=== PATIENT | female | born 1965 | race Caucasian/White ===

== ENCOUNTER → 2016-07-20 | Outpatient (CLI) | payer BC ==
[~2016-07-20] MED LIST: NORVASC5 MG PO; PERCOCET 7.5-31 EACH PO; PRAVASTATIN SOD40 MG PO
[2016-07-20 09:57] LABS: HEMOGLOBIN 13.2 gm/dl (12.3-15.3); RED BLOOD COUNT 4.56 M/UL (4.00-5.10); WHITE BLOOD COUNT 5.4 K/UL (4.5-11.0)
[2016-07-20 10:09] LABS: BUN/CREATININE RATIO 25 (0-10)
== END ==
LOC: OPSV2 09:00
PROVIDERS: Orthopaedic Surgery
DX: Z01.812 Encounter for preprocedural laboratory examination (principal); S42.001A Fracture of unspecified part of right clavicle, initial encounter for closed fracture
CPT/HCPCS: 36415; 80048; 85025

== ENCOUNTER → 2016-07-27 | Day surgery (SDC) | payer BC ==
[~2016-07-27] VITALS: Ht 160 cm; Wt 66.2 kg
== END | disposition home or self-care (01) ==
LOC: OR 06:09
PROVIDERS: Orthopaedic Surgery
PROC: 0PP904Z Removal of Internal Fixation Device from Right Clavicle, Open Approach (ICD-10-PCS; principal; 2016-07-27 08:15)
PROC: 0PQ Upper Bones, Repair (ICD-10-PCS; 2016-07-27 08:15)
DX: T84.218A Breakdown (mechanical) of internal fixation device of other bones, initial encounter (principal); S42.021K Displaced fracture of shaft of right clavicle, subsequent encounter for fracture with nonunion; I10 Essential (primary) hypertension; Z79.899 Other long term (current) drug therapy; Z88.5 Allergy status to narcotic agent; X58.XXXD Exposure to other specified factors, subsequent encounter
CPT/HCPCS: 73000; 76000; C1713; J0690; J1100; J1885; J2250; J2405; J2710; J2795; J3010; J3370; J7120

== ENCOUNTER 2020-09-06 14:21 | Emergency (ER) | payer BC ==
[2020-09-06] MEDS ORDERED: HYDROCODON-ACE1 EAC4 PO (18:12)
[2020-09-06] MEDS ORDERED: IBUPROFEN600 MG PO (18:14)
[2020-09-06] MEDS ORDERED: ZOFRAN4 MG PO (18:17)
== END 2020-09-06 18:18 | disposition home or self-care (01) ==
LOC: ER1 14:21
DX: S52.571A Other intraarticular fracture of lower end of right radius, initial encounter for closed fracture (principal); S52.601A Unspecified fracture of lower end of right ulna, initial encounter for closed fracture; Z88.5 Allergy status to narcotic agent; W01.0XXA Fall on same level from slipping, tripping and stumbling without subsequent striking against object, initial encounter
CPT/HCPCS: 29125; 73110; 99283

== ENCOUNTER → 2020-09-11 | Day surgery (SDC) | payer BC ==
[~2020-09-11] VITALS: Ht 160 cm; Wt 68.7 kg
[~2020-09-11] MED LIST changes: +HYDROCODON-ACE1 EAC4 PO; +IBUPROFEN600 MG PO; +ZOFRAN4 MG PO
[2020-09-11 08:11] LABS: HEMOGLOBIN 15.3 gm/dl (12.3-15.3); RED BLOOD COUNT 5.17 M/UL (4.00-5.10); WHITE BLOOD COUNT 6.3 K/UL (4.5-11.0)
[2020-09-11 08:25] LABS: BUN/CREATININE RATIO 23 (0-10)
== END | disposition home or self-care (01) ==
LOC: OR 07:10
PROVIDERS: Orthopaedic Surgery
DX: S52.571A Other intraarticular fracture of lower end of right radius, initial encounter for closed fracture (principal); S52.611A Displaced fracture of right ulna styloid process, initial encounter for closed fracture; W01.0XXA Fall on same level from slipping, tripping and stumbling without subsequent striking against object, initial encounter; Z88.5 Allergy status to narcotic agent; E78.5 Hyperlipidemia, unspecified; Z20.822 Contact with and (suspected) exposure to COVID-19
CPT/HCPCS: 73110; 76000; 80048; 85027; C1713; J0690; J1100; J2001; J2250; J2405; J2704; J2795; J3010; J7120; U0002